=== PATIENT | female | born 1995 | race Caucasian/White ===

== ENCOUNTER 2016-12-12 14:10 | Emergency (ER) | payer MEDICAID ==
[2016-12-12] MEDS ORDERED: SODIUM CHLORIDE 0.9% 1,000 ML ONE (15:07)
== END 2016-12-12 16:30 | disposition home or self-care (01) ==
LOC: ER 14:10
DX: O26.893 Other specified pregnancy related conditions, third trimester (principal); R00.0 Tachycardia, unspecified; Z3A.35 35 weeks gestation of pregnancy
CPT/HCPCS: 36415; 80053; 80307; 84439; 84443; 85025; 85610; 85730; 93005; 96360